=== PATIENT | male | born 1965 | race Caucasian/White ===

== ENCOUNTER 2022-06-27 19:40 | Emergency (ER) | payer OTHER ==
[~2022-06-27] VITALS: Ht 180.3 cm; Wt 120.0 kg
[2022-06-27 20:15] VITALS: BP 152/90
[2022-06-27] MEDS ORDERED: AML5T PO (22:17)
== END 2022-06-27 23:01 | disposition home or self-care (01) ==
LOC: EDBD 19:40 → EDUNIT# 19:40 → ER 19:40
DX: T78.3XXA Angioneurotic edema, initial encounter (principal); E78.5 Hyperlipidemia, unspecified; I10 Essential (primary) hypertension
CPT/HCPCS: 93005